=== PATIENT | female | born 1945 | race Caucasian/White ===

== ENCOUNTER 2020-01-06 10:41 | Outpatient (CLI) | payer MEDICARE, OTHER, SELFPAY ==
--- NOTE | ~2020-01-06 | CT_ITS ---
EXAMINATION: CT brain wo/w con EXAM DATE: 01/06/2020 11:15 INDICATION: Left-sided throbbing headache for 3 days. TECHNIQUE: Spiral CT of the head was performed without contrast. Axial, coronal and sagittal images were reviewed. Patient was then injected with 100 cc Omnipaque 350 intravenous contrast and reimaged. Postcontrast axial, coronal, sagittal reformatted images reviewed. The dose-length product (DLP) fo r this examination was 1059.33 mGy-cm. The exposure was tailored according to patient size, and iter ative reconstruction (ASIR) was used as additional dose reduction technique. There is no prior study for comparison. FINDINGS: There is no acute intraparenchymal hemorrhage. No evidence of intraparenchymal brain mass lesion. No evidence of acute infarction. Please note that initial head CT has limited sensitivity f or small or acute infarctions. There is mild periventricular and subcortical hypodensity, nonspecific but probably related to small vessel ischemic disease. There is mild prominence of the sulci and v entricles related to cerebral atrophy. There is intracranial carotid arteriosclerosis. There are n o extra-axial collections. There is no mass effect or midline shift. The orbits are unremarkable. Soft tissue is unremarkable. The visualized sinuses and mastoid air cells are well aerated. There are no areas of abnormal enhancement on the postcontrast images. No venous sinus thrombosis. IMPRESSION: 1. No acute intracranial findings. 2. Chronic age related findings. Reviewed, dictated and finalized at location A.
[2020-01-06 11:03] LABS: Estimated Glomerular Filt Rate > 60
== END 2020-01-06 10:42 | disposition home or self-care (01) ==
PROVIDERS: PCP Internal Medicine; Visit Provider Internal Medicine
DX: R51 Headache (principal)
CPT/HCPCS: 36415; 70470; Q9967

== ENCOUNTER 2020-05-04 07:59 | Outpatient (CLI) | payer MEDICARE, OTHER, SELFPAY ==
--- NOTE | ~2020-05-04 | MM_ITS ---
EXAMINATION: MM screening arsenio BI w ziyad HISTORY: Screening mammogram TECHNIQUE: Craniocaudal and mediolateral oblique 3-D tomosynthesis images were obtained and synthetic 2-D images were generated. CAD analysis was submitted and interpreted. COMPARISON: 03/27/2019, 02/26/2018, 02/13/2017 bilateral digital screening mammogram examinations BREAST PARENCHYMAL COMPOSITION: The breasts are almost entirely fatty. FINDINGS: There is a small benign appearing intramammary lymph node in the upper outer right breast p osteriorly, diminished in size since 02/13/2017. There is no evidence of suspicious mass, calcificatio n, or architectural distortion to suggest malignancy in either breast. There has been no suspicious i nterval change. IMPRESSION: 1. No mammographic evidence of malignancy. 2. Recommend routine screening mammography in one year. BI-RADS Category 2: Benign finding(s). Reviewed, dictated and finalized at location B. TOLOGICAL TECHNICIAN
== END 2020-05-04 08:00 | disposition home or self-care (01) ==
PROVIDERS: PCP Internal Medicine; Visit Provider Nurse Practitioner
DX: Z12.31 Encounter for screening mammogram for malignant neoplasm of breast (principal)
CPT/HCPCS: 77063; 77067

== ENCOUNTER 2020-10-13 07:36 | Outpatient (CLI) | payer MEDICARE, OTHER, SELFPAY ==
--- NOTE | 2020-10-13 07:41 | ECHO_ITS ---
Patient Info Name: Nicolasa Marrufo Age: 75 years : 1945 Gender: Female Ht: 65 in Wt: 170 lbs BSA: 1.90 m2 HR: 82 bpm BP: 121 / 82 mmHg Technical Quality: Good Exam Date: 10/13/2020 7:53 AM Exam Location: [facility] Patient Status: Outpatient Admit Date: 10/13/2020 Staff Ordering Physician: Evangelist Crockett MD Medical Safety Director: Dai Christianson RDCS Attending Provider: Evangelist Crockett MD Referring Physician: Bon LAM; Exam Type: CA echo doppler color flow Study Info Indications I51.9 - Heart disease, unspecified Complete two-dimensional, color flow and Doppler transthoracic echocardiogram is performed. Summary 1. Complete two-dimensional, color flow and Doppler transthoracic echocardiogram is performed. 2. Left ventricular chamber dimension is normal. 3. Left ventricular systolic function is normal, estimated at 60-65%. 4. The left ventricular diastolic function is grade I diastolic dysfunction. 5. E/e' 11 is mildly elevated. 6. There is mild aortic valve sclerosis. 7. There is trace tricuspid valve regurgitation. 8. No pulmonary hypertension, estimated pulmonary arterial systolic pressure is 27 mmHg. Left Ventricle E/e' 11 is mildly elevated. Left ventricular chamber dimension is normal. Left ventricular systolic function is normal, estimated at 60-65%. The left ventricular diastolic function is grade I diastolic dysfunction. Right Ventricle Right ventricular chamber dimension is normal. Right ventricular systolic function is normal. Left Atria Left atrial chamber dimension is normal. Right Atria Right atrial chamber dimension is normal. Aortic Valve The aortic valve is trileaflet. There is mild aortic valve sclerosis. There is no aortic valve stenosis. There is no aortic valve regurgitation. Pulmonic Valve There is no pulmonic regurgitation. Mitral Valve There is no mitral valve stenosis. There is no mitral valve regurgitation. Tricuspid Valve There is trace tricuspid valve regurgitation. No pulmonary hypertension, estimated pulmonary arterial systolic pressure is 27 mmHg. Pericardium/Pleural There is no pericardial effusion. Inferior Vena Cava Normal inferior vena cava with >50% collapse upon inspiration consistent with normal right atrial pressure, 5 mmHg. Aorta The aortic root size at the sinus of Valsalva is normal. Left Ventricular Outflow Tract Name Value Normal LVOT 2D LVOT Diameter 1.9 cm LVOT Doppler LVOT Peak Gradient 4 mmHg LVOT Mean Gradient 3 mmHg LVOT VTI 20 cm LVOT VTI/AV VTI Ratio 0.9 LVOT Stroke Volume 57 ml LVOT CO 4.4 l/min LVOT CI 2.3 l/min/m2 Pulmonic Valve Name Value Normal RVOT Doppler
== END 2020-10-13 07:37 | disposition home or self-care (01) ==
PROVIDERS: PCP Internal Medicine; Visit Provider Internal Medicine
DX: I51.9 Heart disease, unspecified (principal)
CPT/HCPCS: 93306

== ENCOUNTER 2021-06-04 09:22 | Outpatient (CLI) | payer MEDICARE, OTHER, SELFPAY ==
--- NOTE | ~2021-06-04 | NM_ITS ---
EXAMINATION: NM aurora stress w perfusion DATE: 06/04/2021 11:57 INDICATION: Abnormal electrocardiogram. TECHNIQUE: Rest images were obtained following intravenous administration of 9.5 mCi Tc99m tetrofosmi n (Myoview). The patient was infused intravenously with Lexiscan (regadenoson). Then, 30 mCi Tc99m te trofosmin (Myoview) was administered intravenously, and stress images were obtained. Data was reconst ructed into short axis and horizontal and vertical long axis SPECT images. Gated SPECT images were al so obtained. COMPARISON: None. FINDINGS: There is no definite reversible or fixed perfusion abnormality to suggest ischemia or infar ction. There is no segmental wall motion abnormality. Left ventricular ejection fraction measures 7 0%. IMPRESSION: 1. No definite ischemia or infarct. 2. Normal left ventricular ejection fraction measuring 70%. Reviewed, dictated and finalized at location A. DENT DOCTOR
--- NOTE | 2021-06-04 10:01 | EST_ITS ---
Patient Info Name: Nicolasa Marrufo Age: 75 years : 1945 Gender: Female Ht: 64 in Wt: 173 lbs BSA: 1.91 m2 HR: 73 bpm BP: 168 / 97 mmHg Heart Rhythm: Left Bundle Branch Block Exam Date: 06/04/2021 10:47 AM Exam Location: [facility] Stress Patient Status: Outpatient Admit Date: 06/04/2021 Staff Ordering Physician: Evangelist Crockett MD Attending Provider: Evangelist Crockett MD Exercise Technologist: Kaya Tena CT Exercise Physician: Ryan Vazquez DO Exam Type: CA stress aurora w NM Study Info Indications I44.7 - Left bundle-branch block, unspecified R94.31 - Abnormal electrocardiogram ECG EKG A regadenoson stress test was performed. Summary 1. 1. Inconclusive lexiscan stress test for ischemic ST changes by ECG criteria due to underlying LBBB. 2. 2. Stable hemodynamics throughout the test. 3. 3. Nuclear scan to follow and will be reported separately. Please correlate with it. 4. 4. Patient informed of the above results. Protocol: Lexiscan Stress ECG Details Stage: REST Duration (min): 3 min : 30 sec HR (bpm): 74 SBP (mmHg): 168 DBP (mmHg): 97 Stage: REST Duration (min): 10 min : 7 sec HR (bpm): 78 SBP (mmHg): 168 DBP (mmHg): 97 Stage: STAGE 1 Duration (min): 1 min : 0 sec HR (bpm): 113 SBP (mmHg): 181 DBP (mmHg): 74 Stage: RECOVERY Duration (min): 1 min : 0 sec HR (bpm): 121 SBP (mmHg): 181 DBP (mmHg): 74 Stage: RECOVERY Duration (min): 2 min : 0 sec HR (bpm): 119 SBP (mmHg): 181 DBP (mmHg): 74 Stage: RECOVERY Duration (min): 3 min : 0 sec HR (bpm): 110 SBP (mmHg): 191 DBP (mmHg): 86 Stage: RECOVERY Duration (min): 4 min : 0 sec HR (bpm): 100 SBP (mmHg): 191 DBP (mmHg): 86 Stage: RECOVERY Duration (min): 4 min : 57 sec HR (bpm): 104 SBP (mmHg): 188 DBP (mmHg): 90 Rest HR: 78 bpm Peak HR: 122 bpm Rest Sys BP: 168 mmHg Peak Sys BP: 191 mmHg Max Pred HR: 147 bpm % Max Pred HR: 83 % Target HR: 125 bpm Max RPP: 23,302 bpm*mmHg Termination Reason: Completed protocol Cardiac Symptoms: Shortness of breath Total Time: 1 min : 0 sec Rest Coppola BP: 97 mmHg Peak Coppola BP: 86 mmHg Total Dose: 0.4 mg Resting ECG Sinus rhythm, LBBB. Stress ECG No ST changes. Arrhythmias None. Report Signatures
== END 2021-06-04 09:23 | disposition home or self-care (01) ==
LOC: ANHCARD 09:25
PROVIDERS: PCP Internal Medicine; Visit Provider Internal Medicine
DX: R94.31 Abnormal electrocardiogram [ECG] [EKG] (principal); I44.7 Left bundle-branch block, unspecified
CPT/HCPCS: 78452; 93017; A9502; J2785

== ENCOUNTER 2021-08-26 10:15 | Outpatient (CLI) | payer MEDICARE, OTHER, SELFPAY ==
--- NOTE | ~2021-08-26 | MM_ITS ---
EXAMINATION: MM screening arsenio BI w ziyad HISTORY: Screening TECHNIQUE: Craniocaudal and mediolateral oblique 3-D tomosynthesis images were obtained and synthetic 2-D images were generated. CAD analysis was submitted and interpreted. COMPARISON: Comparison to multiple prior studies sequentially, with oldest reviewed study dated 02/03. BREAST PARENCHYMAL COMPOSITION: The breasts are almost entirely fatty. FINDINGS: There is no evidence of suspicious mass, calcification, or architectural distortion to sugg est malignancy in either breast. There has been no suspicious interval change. IMPRESSION: 1. No mammographic evidence of malignancy. 2. Recommend routine screening mammography in one year. BI-RADS Category 1: Negative Reviewed, dictated and finalized at location A. FOUNDER AND CEO
== END 2021-08-26 10:16 | disposition home or self-care (01) ==
PROVIDERS: PCP Internal Medicine; Visit Provider Nurse Practitioner
DX: Z12.31 Encounter for screening mammogram for malignant neoplasm of breast (principal)
CPT/HCPCS: 77063; 77067

== ENCOUNTER 2021-10-29 07:43 | Outpatient (CLI) | payer MEDICARE, OTHER, SELFPAY ==
--- NOTE | ~2021-10-29 | DEXA_ITS ---
Bone Density Report Name: KARIE CHRISTY Age: 76 Sex: Female Ethnicity: White Date of : 1945 Indication: postmenopausal; screening for osteoporosis; Referring Provider: BRISSA, LINA Study: Bone densitometry was performed. Exam Date: October 29, 2021 Accession number: [id number] Bone Density: Region BMD T-score Z-score Classification AP Spine(L1-L4) 1.060 0.1 2.5 Normal Femoral Neck (Left) 0.597 -2.3 -0.2 Osteopenia Total Hip (Left) 0.893 -0.4 1.3 Normal Femoral Neck (Right) 0.617 -2.1 0.0 Osteopenia Total Hip (Right) 0.837 -0.9 0.9 Normal Total Hip Mean 0.865 -0.7 1.1 Normal World Health Organization criteria for BMD impression classify patients as: Normal (T-score at or above -1.0), Osteopenia (T-score between -1.0 and -2.5), or Osteoporosis (T-score at or below -2.5). 10-year Fracture Risk(1): Major Osteoporotic Fracture 14% Hip Fracture 3.8% Reported Risk Factors: [place] (), Neck BMD=0.597, BMI=29.1 (1) FRAX(R) Version 3.08. Fracture probability calculated for an untreated patient. Fracture probability may be lower if the patient has received treatment. Previous Exams: Region Exam Age BMD T-score BMD Change BMD Change Date g/cm2 vs Baseline vs Previous AP Spine (L1-L4) 10/29/2021 76 1.060 0.1 0.051 (5.1%)# 0.024 (2.4%)* 02/26/2018 72 1.035 -0.1 0.027 (2.7%)# 0.014 (1.4%) 02/11/2016 70 1.021 -0.2 0.012 (1.2%)# 0.012 (1.2%)# 01/09/2014 68 1.008 -0.4 Total Hip(Left) 10/29/2021 76 0.893 -0.4 0.091 (11.3%)# -0.007 (-0.8%) 02/26/2018 72 0.901 -0.3 0.098 (12.2%)# 0.038 (4.4%)* 02/11/2016 70 0.863 -0.6 0.060 (7.5%)# 0.060 (7.5%)# 01/09/2014 68 0.803 -1.1 Total Hip(Right) 10/29/2021 76 0.837 -0.9 -0.034 (-3.9%) -0.062 (-6.9%) 02/26/2018 72 0.899 -0.4 0.028 (3.2%)# 0.059 (7.1%)* 02/11/2016 70 0.840 -0.8 -0.032 (-3.7%) -0.032 (-3.7%) 01/09/2014 68 0.872 -0.6 *Denotes significance at 95% confidence level, LSC for AP Spine = 0.022 g/cm2, LSC for Total Hip = 0.027 g/cm2 # Denotes dissimilar scan types or analysis methods Clinical Information Provided by Patient: Has used the following medications: Vitamin D Patient maximum height was 65 Menopause Age: 57 Does not regularly consume dairy products Onset of menses at age 15 Number of children 1 Impression: The patient has low bone mass, based on the Left Femora
== END 2021-10-29 07:44 | disposition home or self-care (01) ==
PROVIDERS: PCP Internal Medicine; Visit Provider Nurse Practitioner
DX: Z78.0 Asymptomatic menopausal state (principal); M85.851 Other specified disorders of bone density and structure, right thigh; M85.852 Other specified disorders of bone density and structure, left thigh
CPT/HCPCS: 77080

== ENCOUNTER 2022-02-10 00:46 | Day surgery (SDC) | payer MEDICARE, OTHER, SELFPAY ==
[2022-01-27 14:13] VITALS: BMI 28.9
--- NOTE | 2022-02-09 16:05 | PM.HPGS ---
History of Present Illness History of Present Illness Consent: Risks, benefits, and alternatives have been discussed and questions answered. Patient agrees to proceed with procedure. Chief complaint: family hx colon ca Narrative: Nicolasa Marrufo is a 76 year old female is referred for colon cancer screening. Her brother had colon cancer. She also had 2 polyps removed about 5 years ago Review of Systems Review of Systems: All systems reviewed & are unremarkable except as noted in HPI and below PMFSH Past Medical History Medical History Abnormal EKG Abnormal finding of blood chemistry Acute right-sided low back pain without sciatica Aortic valve sclerosis Benign essential hypertension BMI 28.0-28.9,adult BMI 29.0-29.9,adult Bronchiectasis with acute exacerbation Bronchitis Chronic low back pain DM type 2 (diabetes mellitus, type 2) Encounter for Medicare annual wellness exam Encounter for routine adult health examination with abnormal findings Encounter for routine adult health examination without abnormal findings Follow up Frozen shoulder Gastroenteritis Geographic tongue Grade I diastolic dysfunction Grade II diastolic dysfunction Headache Hematuria Hyperlipidemia Hypothyroidism (acquired) Left bundle branch block Left shoulder pain Mid back pain Nausea and vomiting Nonintractable headache On watermaster drug therapy Reactive airway disease Right calf pain Right hip pain Vitamin D deficiency Wheezing Surgical History Surgical History S/P cholecystectomy Family History Family History Father Diabetes mellitus Hypertension Family history of diabetes mellitus in first degree relative Mother Hypertension Family history of cardiovascular disease Family history of heart disease in male family member before age 55 Sibling Carcinoma of colon Family history of malignant neoplasm of gastrointestinal tract Social History Social History Smoking status: Never smoker Second hand tobacco smoke exposure: No Smoking end date: 05/19/80 Alcohol intake: never Substance use type: does not use Living arrangements: with family Spiritual care concerns: No Meds Home Medications and Allergies Home Medications Medication Instructions Recorded Confirmed Type cetirizine 10 mg tablet (Zyrtec) 5 mg PO DAILY PRN Allergy Symptoms 04/30/19 02/10/22 History oxybutynin chloride 10 mg 10 mg PO DAILY 04/30/19 02/10/22 History tablet,extended release 24 hr Blood Glucose Monitoring #1 ea 05/28/19 02/10/22 Rx (blood-glucose meter) blood sugar diagnostic (Accu-Chek #10 ea 05/28/19 02/10/22 History Patria Plus test strips) lancets (Accu-Chek Softclix #100 ea 06/07/19 02/10/22 Rx Lancets) lancets 33 gauge (OneTouch Delica #100 ea 06/10/19 02/10/22 Rx Lancets) cholecalciferol (vitamin D3) 25 2,000 unit PO DAILY 08/28/19 02/10/22 History mcg (1,000 unit) capsule omega-3 fatty acids 1,000 mg 1,000 mg PO BID 08/28/19 02/10/22 History capsule (Fish Oil Concentrate) vitamin B complex 1 tablet PO DAILY 08/28/19 02/10/22 History quinapril 20 mg tablet 20 mg PO DAILY #90 tabs 08/16/21 02/10/22 Rx promethazine 25 mg tablet 25 mg PO .hs PRN sleep #30 tabs 12/01/21 02/10/22 Rx albuterol sulfate 90 mcg/actuation 1 puff inhalation Q4H PRN 12/02/21 02/10/22 Rx aerosol inhaler (Ventolin HFA) shortness of breath or wheezing #6.7 grams ibuprofen 800 mg tablet 800 mg PO BID 01/27/22 02/10/22 History levothyroxine 100 mcg tablet 100 mcg PO DAILY 01/27/22 02/10/22 History metformin 1,000 mg tablet 1,000 mg PO BID 01/27/22 02/10/22 History pravastatin 80 mg tablet 80 mg PO DAILY 01/27/22 02/10/22 History Allergies Allergy/AdvReac Type Severity Reaction Status Date / Time codeine AdvReac Int
[2022-02-10 07:05] VITALS: BP 151/85; PULSE 105; RESP 18; TEMP 36.4; O2SAT 97; BMI 28.5
[2022-02-10] MEDS: LACTATED RINGERS 1,000 ML 150 ML IV CONT (07:42)
[2022-02-10 07:43] LABS: Glucose Point of Care 139 mg/dl (65-105)
--- NOTE | 2022-02-10 08:16 | WPDANESEPPF ---
Anes - Initial Pre Proc Eval Procedure: Operation Date: 02/10/22 08:30 Proposed Procedures p Screening Colonoscopy - Kumar Sorensen MD Date/Time: 02/10/22 08:16 Surgeon: Kumar Sorensen MD Pre Op Diagnosis: family hx colon ca Patient Data Age: 76 Gender: F Height: 1.63 m Weight: 75.3 kg Last Vital Signs Temp 97.6 F 02/10/22 07:05 Pulse 105 H 02/10/22 07:05 Resp 18 02/10/22 07:05 BP 151/85 H 02/10/22 07:05 Pulse Ox 97 02/10/22 07:05 O2 Del Method Room Air 02/10/22 07:05 Allergies Allergy/AdvReac Type Severity Reaction Status Date / Time codeine AdvReac Intermediate Nausea and Verified 02/10/22 07:26 Vomiting Home Medications Medication Instructions Recorded Confirmed Type cetirizine 10 mg tablet (Zyrtec) 5 mg PO DAILY PRN Allergy Symptoms 04/30/19 02/10/22 History oxybutynin chloride 10 mg 10 mg PO DAILY 04/30/19 02/10/22 History tablet,extended release 24 hr Blood Glucose Monitoring #1 ea 05/28/19 02/10/22 Rx (blood-glucose meter) blood sugar diagnostic (Accu-Chek #10 ea 05/28/19 02/10/22 History Patria Plus test strips) lancets (Accu-Chek Softclix #100 ea 06/07/19 02/10/22 Rx Lancets) lancets 33 gauge (OneTouch Delica #100 ea 06/10/19 02/10/22 Rx Lancets) cholecalciferol (vitamin D3) 25 2,000 unit PO DAILY 08/28/19 02/10/22 History mcg (1,000 unit) capsule omega-3 fatty acids 1,000 mg 1,000 mg PO BID 08/28/19 02/10/22 History capsule (Fish Oil Concentrate) vitamin B complex 1 tablet PO DAILY 08/28/19 02/10/22 History quinapril 20 mg tablet 20 mg PO DAILY #90 tabs 08/16/21 02/10/22 Rx promethazine 25 mg tablet 25 mg PO .hs PRN sleep #30 tabs 12/01/21 02/10/22 Rx albuterol sulfate 90 mcg/actuation 1 puff inhalation Q4H PRN 12/02/21 02/10/22 Rx aerosol inhaler (Ventolin HFA) shortness of breath or wheezing #6.7 grams ibuprofen 800 mg tablet 800 mg PO BID 01/27/22 02/10/22 History levothyroxine 100 mcg tablet 100 mcg PO DAILY 01/27/22 02/10/22 History metformin 1,000 mg tablet 1,000 mg PO BID 01/27/22 02/10/22 History pravastatin 80 mg tablet 80 mg PO DAILY 01/27/22 02/10/22 History Laboratory Tests 02/10/22 07:41 POC Capillary Glucose 139 mg/dl H mg/dl (65-105) Patient hx anesthesia problems: none Family hx anesthesia problems: none Results Review: All pre-operative results and documents have been reviewed as part of the pre-operative evaluation. [facility] Past Medical History Medical History Abnormal EKG Abnormal finding of blood chemistry Acute right-sided low back pain without sciatica Aortic valve sclerosis Benign essential hypertension BMI 28.0-28.9,adult BMI 29.0-29.9,adult Bronchiectasis with acute exacerbation Bronchitis Chronic low back pain DM type 2 (diabetes mellitus, type 2) Encounter for Medicare annual wellness exam Encounter for routine adult health examination with abnormal findings Encounter for routine adult health examination without abnormal findings Follow up Frozen shoulder Gastroenteritis Geographic tongue Grade I diastolic dysfunction Grade II diastolic dysfunction Headache Hematuria Hyperlipidemia Hypothyroidism (acquired) Left bundle branch block Left shoulder pain Mid back pain Nausea and vomiting Nonintractable headache 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
[2022-02-10 08:47] VITALS: BP 109/65; PULSE 92; RESP 16; O2SAT 94
[2022-02-10 08:57] VITALS: BP 114/62; PULSE 91; RESP 19; O2SAT 95
== END 2022-02-10 09:17 | disposition home or self-care (01) ==
PROVIDERS: PCP Internal Medicine; Visit Provider Internal Medicine Gastroenterology
PROC: 0DJD8ZZ Inspection of Lower Intestinal Tract, Via Natural or Artificial Opening Endoscopic (ICD-10-PCS; CPT 45378; principal; 2022-02-10 08:30)
DX: Z12.11 Encounter for screening for malignant neoplasm of colon (principal); Z80.0 Family history of malignant neoplasm of digestive organs; K57.30 Diverticulosis of large intestine without perforation or abscess without bleeding; E03.9 Hypothyroidism, unspecified; Z79.84 Long term (current) use of oral hypoglycemic drugs; Z79.51 Long term (current) use of inhaled steroids; I10 Essential (primary) hypertension; E11.9 Type 2 diabetes mellitus without complications; I35.8 Other nonrheumatic aortic valve disorders; E78.5 Hyperlipidemia, unspecified; E55.9 Vitamin D deficiency, unspecified; Z90.49 Acquired absence of other specified parts of digestive tract; I44.7 Left bundle-branch block, unspecified
CPT/HCPCS: G0105; 82948; J2704; J7120

== ENCOUNTER 2022-08-30 14:23 | Outpatient (CLI) | payer MEDICARE, OTHER, SELFPAY ==
--- NOTE | 2022-08-30 14:33 | ECHO_ITS ---
Patient Info Name: Nicolasa Marrufo Age: 77 years : 1945 Gender: Female Ht: 64 in Wt: 166 lbs BSA: 1.87 m2 HR: 87 bpm BP: 165 / 94 mmHg Heart Rhythm: Sinus Rhythm Technical Quality: Fair Exam Date: 08/30/2022 1:40 PM Exam Location: [facility] Pulmonary Patient Status: Outpatient Admit Date: 08/30/2022 Staff Ordering Physician: Evangelist Crockett MD Automotive Vehicle Inspector: Marian Philippe RDCS Attending Provider: Evangelist Crockett MD Referring Physician: Bon LAM; Exam Type: CA echo doppler color flow Study Info Indications I44.7 - Left bundle-branch block, unspecified Complete two-dimensional, color flow and Doppler transthoracic echocardiogram is performed. Summary 1. Complete two-dimensional, color flow and Doppler transthoracic echocardiogram is performed. 2. Left ventricular chamber dimension is normal. 3. Left ventricular systolic function is normal, estimated at 55-60%. 4. The left ventricular diastolic function is grade I diastolic dysfunction. 5. E/e' 13 is mildly elevated. 6. Global longitudinal strain is slightly abnormal at -16.9%. 7. There is mild aortic valve sclerosis. 8. There is trace mitral valve regurgitation. 9. There is trace tricuspid valve regurgitation. 10. No pulmonary hypertension, estimated pulmonary arterial systolic pressure is 18 mmHg. 11. There is trace pulmonic regurgitation. Left Ventricle E/e' 13 is mildly elevated. Global longitudinal strain is slightly abnormal at -16.9%. Left ventricular chamber dimension is normal. Left ventricular systolic function is normal, estimated at 55-60%. The left ventricular diastolic function is grade I diastolic dysfunction. Right Ventricle Right ventricular systolic function is normal and with normal TAPSE 2.1 cm. Right ventricular chamber dimension is normal. Left Atria Left atrial chamber dimension is normal. Right Atria Right atrial chamber dimension is normal. Aortic Valve The aortic valve is trileaflet. There is mild aortic valve sclerosis. There is no aortic valve stenosis. There is no aortic valve regurgitation. Pulmonic Valve There is trace pulmonic regurgitation. Mitral Valve There is no mitral valve stenosis. There is trace mitral valve regurgitation. Tricuspid Valve There is trace tricuspid valve regurgitation. No pulmonary hypertension, estimated pulmonary arterial systolic pressure is 18 mmHg. Pericardium/Pleural There is no pericardial effusion. Inferior Vena Cava Normal inferior vena cava with >50% collapse upon inspiration consistent with normal right atrial pressure, 5 mmHg. Aorta The aortic root size at the sinus of Valsalva is normal. Left Ventricular Outflow Tract Name Value Normal LVOT 2D LVOT Diameter 2.0 cm LVOT Doppler LVOT Peak Gradient 5 mmHg LVOT Mean Gradient 2 mmHg LVOT VTI 17 cm LVOT VTI/AV VTI Ratio 0.7 LVOT Stroke Volume 53 ml LVOT CO 3.9 l/min LVOT CI
== END 2022-08-30 14:24 | disposition home or self-care (01) ==
LOC: ANHCARD 14:24
PROVIDERS: PCP Internal Medicine; Visit Provider Internal Medicine
DX: I44.7 Left bundle-branch block, unspecified (principal); I35.8 Other nonrheumatic aortic valve disorders; I51.9 Heart disease, unspecified
CPT/HCPCS: 93306

== ENCOUNTER 2022-10-04 09:58 | Outpatient (CLI) | payer MEDICARE, OTHER, SELFPAY ==
--- NOTE | ~2022-10-04 | XR_ITS ---
Clinical Indication: Cough PA and lateral views of the chest: Comparison: 08/13/2018 Findings: The lungs are clear, without evidence of focal consolidation or pleural effusion. Cardiome diastinal silhouette is within normal limits. Bones and soft tissues are unremarkable. Impression: Normal chest. Reviewed, dictated and finalized at [facility]. Impression: Normal chest.
== END 2022-10-04 09:59 | disposition home or self-care (01) ==
PROVIDERS: PCP Internal Medicine; Visit Provider Internal Medicine
DX: R05.9 Cough, unspecified (principal); R06.2 Wheezing; R07.89 Other chest pain
CPT/HCPCS: 71046

== ENCOUNTER 2022-10-05 16:06 | Outpatient (CLI) | payer MEDICARE, OTHER, SELFPAY ==
--- NOTE | ~2022-10-05 | MM_ITS ---
EXAMINATION: MM screening arsenio BI w ziyad HISTORY: Screening mammogram TECHNIQUE: Craniocaudal and mediolateral oblique 3-D tomosynthesis images were obtained and synthetic 2-D images were generated. CAD analysis was submitted and interpreted. COMPARISON: 08/26/2021, 05/04/2020, 04/06/2019 bilateral screening mammogram examinations BREAST PARENCHYMAL COMPOSITION: The breasts are almost entirely fatty. FINDINGS: There is no evidence of suspicious mass, calcification, or architectural distortion to sugg est malignancy in either breast. There has been no suspicious interval change. IMPRESSION: 1. No mammographic evidence of malignancy. 2. Recommend routine screening mammography in one year. BI-RADS Category 1: Negative Reviewed, dictated and finalized at location B.
== END 2022-10-05 16:07 | disposition home or self-care (01) ==
PROVIDERS: PCP Internal Medicine; Visit Provider Obstetrics & Gynecology Gynecology
DX: Z12.31 Encounter for screening mammogram for malignant neoplasm of breast (principal)
CPT/HCPCS: 77063; 77067

== ENCOUNTER 2022-10-26 11:11 | Outpatient (CLI) | payer MEDICARE, OTHER, SELFPAY ==
--- NOTE | 2022-11-02 15:12 | WPDHOLTEREM ---
Holter/Event Monitor Holter/Event Monitor Date of procedure: 10/26/22 Holter/Event Procedure: 48 Hr Holter Monitor Indications: High heart rate Conclusion: 1. 48 hour holter monitor on 10/26/22. 2. Predominant rhythm is sinus rhythm. HR range 54-132 bpm; average HR 95 bpm. HR at 132 bpm was at 14:08. 3. There are 520 premature supraventricular complexes and 1 supraventricular couplet. There are 2 episodes of atrial tachycardia, fastest at 160 bpm and longest lasting 4 beats. 4. No premature ventricular complexes. No ventricular tachycardia. 5. Underlying bundle branch block. No sinoatrial or atrioventricular blocks. No significant pauses greater than 2 seconds. 6. Patient reports symptoms of shortness of breath and pain in hand which demonstrate sinus rhythm, HR range 100-129 bpm.
== END 2022-10-26 11:12 | disposition home or self-care (01) ==
LOC: ANHCARD 11:12
PROVIDERS: PCP Internal Medicine; Visit Provider Internal Medicine
DX: R00.9 Unspecified abnormalities of heart beat (principal); I10 Essential (primary) hypertension
CPT/HCPCS: 93225; 93226

== ENCOUNTER 2022-12-27 09:34 | Outpatient (CLI) | payer MEDICARE, OTHER, SELFPAY ==
--- NOTE | 2022-12-30 12:16 | WPDHOLTEREM ---
Holter/Event Monitor Holter/Event Monitor Date of procedure: 12/27/22 Holter/Event Procedure: 48 Hr Holter Monitor Indications: SVT Conclusion: 1. 48 hour holter monitor on 12/27/22. 2. Underlying rhythm is sinus rhythm. HR range 53-124 bpm; average HR 80 bpm. 3. There are 86 premature supraventricular complexes and 5 supraventricular couplets. No supraventricular tachycardia. 4. There are 52 prmature ventricular complexes. No ventricular tachycardia. 5. Baseline LBBB. No sinoatrial or atrioventricular blocks. No significant pauses greater than 2 seconds. 6. Patient reports symptoms of lightheadedness, shortness of breath and pain between shoulder blades which demonstrate sinus rhythm, HR range 68-98 bpm.
== END 2022-12-27 09:35 | disposition home or self-care (01) ==
LOC: ANHCARD 09:34
PROVIDERS: PCP Internal Medicine; Visit Provider Internal Medicine
DX: I47.1 Supraventricular tachycardia (principal)
CPT/HCPCS: 93225; 93226

== ENCOUNTER 2023-08-07 10:17 | Outpatient (CLI) | payer MEDICARE, OTHER, SELFPAY ==
[2023-08-07 11:10] LABS: Influenza A QL RT-PCR Negative (Negative); Influenza B QL RT-PCR Negative (Negative)
== END 2023-08-07 10:18 | disposition home or self-care (01) ==
LOC: ANHLAB 10:18
PROVIDERS: PCP Internal Medicine; Visit Provider Internal Medicine
DX: R05.9 Cough, unspecified (principal); R50.9 Fever, unspecified
CPT/HCPCS: 87502

== ENCOUNTER 2023-08-21 15:42 | Outpatient (CLI) | payer MEDICARE, OTHER, SELFPAY ==
--- NOTE | ~2023-08-21 | XR_ITS ---
EXAMINATION: XR chest 2V Exam Date/Time: 08/21/2023 15:50 WEIGH TANK OPERATOR HISTORY: R05.9 - Cough, unspecified Comparison: 10/04/2022. RESULT: Lines, tubes, and devices: None. Lungs and pleura: Clear. Cardiomediastinal silhouette: Stable. Other: No acute osseous or upper abdominal finding. IMPRESSION: No acute cardiopulmonary process. Reviewed, dictated and finalized at location K. H TANK OPERATOR
== END 2023-08-21 15:43 | disposition home or self-care (01) ==
LOC: ANHIMG 15:45
PROVIDERS: PCP Internal Medicine; Visit Provider Internal Medicine
DX: R05.9 Cough, unspecified (principal)
CPT/HCPCS: 71046

== ENCOUNTER 2023-09-05 08:35 | Outpatient (CLI) | payer MEDICARE, OTHER, SELFPAY ==
--- NOTE | 2023-09-05 | EST_ITS ---
Patient Info Name: Nicolasa Marrufo Age: 78 years : 1945 Gender: Female Ht: 65 in Wt: 165 lbs BSA: 1.87 m2 HR: 86 bpm BP: 115 / 71 mmHg Heart Rhythm: Left Bundle Branch Block Exam Date: 09/05/2023 9:26 AM Exam Location: Echo Lab Patient Status: Outpatient Admit Date: 09/05/2023 Staff Ordering Physician: Evangelist Crockett MD Attending Provider: Evangelist Crockett MD Exercise Technologist: Kaya Tena CT Exercise Physician: Ryan Vazquez DO Exam Type: CA stress aurora w NM Study Info Indications I44.7 - Left bundle-branch block, unspecified A regadenoson stress test was performed. Summary 1. 1. Inconclusive lexiscan stress test for ischemic ST changes by ECG criteria due to baseline LBBB. 2. 2. Stable hemodynamics throughout the test. 3. 3. Nuclear scan to follow and will be reported separately. Please correlate with it. 4. 4. Patient informed of the above results. Protocol: Lexiscan Stress ECG Details Stage: REST Duration (min): 1 min : 39 sec HR (bpm): 86 SBP (mmHg): 115 DBP (mmHg): 71 Stage: REST Duration (min): 8 min : 9 sec HR (bpm): 90 SBP (mmHg): 115 DBP (mmHg): 71 Stage: STAGE 1 Duration (min): 1 min : 0 sec HR (bpm): 119 SBP (mmHg): 115 DBP (mmHg): 75 Stage: RECOVERY Duration (min): 1 min : 0 sec HR (bpm): 123 SBP (mmHg): 115 DBP (mmHg): 75 Stage: RECOVERY Duration (min): 2 min : 0 sec HR (bpm): 121 SBP (mmHg): 115 DBP (mmHg): 75 Stage: RECOVERY Duration (min): 3 min : 0 sec HR (bpm): 116 SBP (mmHg): 147 DBP (mmHg): 69 Stage: RECOVERY Duration (min): 4 min : 0 sec HR (bpm): 112 SBP (mmHg): 147 DBP (mmHg): 69 Stage: RECOVERY Duration (min): 4 min : 41 sec HR (bpm): 110 SBP (mmHg): 133 DBP (mmHg): 60 Rest HR: 90 bpm Peak HR: 124 bpm Rest Sys BP: 115 mmHg Peak Sys BP: 147 mmHg Max Pred HR: 144 bpm % Max Pred HR: 86 % Target HR: 122 bpm Max RPP: 18,228 bpm*mmHg Termination Reason: Completed protocol Cardiac Symptoms: Shortness of breath Total Time: 1 min : 0 sec Rest Coppola BP: 71 mmHg Peak Coppola BP: 69 mmHg Total Dose: 0.4 mg Resting ECG Sinus rhythm, LBBB. Stress ECG No ST changes. Arrhythmias None. Report Signatures
--- NOTE | ~2023-09-05 | NM_ITS ---
EXAMINATION: NM aurora stress w perfusion DATE: 09/05/2023 10:32 INDICATION: Left bundle branch block. TECHNIQUE: Rest images were obtained following intravenous administration of 9.98 mCi Tc99m tetrofosm in (Myoview). The patient was infused intravenously with Lexiscan (Regadenoson). Then, 33.3 mCi Tc99m tetrofosmin (Myoview) was administered intravenously, and stress images were obtained. Data was toñito nstructed into short axis and horizontal and vertical long axis SPECT images. Gated SPECT images were also obtained. COMPARISON: 06/04/2021 FINDINGS: There is no definite reversible or fixed perfusion abnormality to suggest ischemia or infar ction. There is normal left ventricular chamber size, wall motion and ejection fraction. Left ventr icular ejection fraction measures >70%. IMPRESSION: 1. Normal myocardial perfusion at rest and during stress. 2. Left ventricular ejection fraction measuring >70%. Reviewed, dictated and finalized at location A.
== END 2023-09-05 08:36 | disposition home or self-care (01) ==
LOC: ANHCARD 08:38
PROVIDERS: PCP Internal Medicine; Visit Provider Internal Medicine
DX: I51.9 Heart disease, unspecified (principal); I35.8 Other nonrheumatic aortic valve disorders; I44.7 Left bundle-branch block, unspecified; I47.10 Supraventricular tachycardia, unspecified
CPT/HCPCS: 78452; 93017; A9502; J2785

== ENCOUNTER 2023-12-06 09:48 | Outpatient (CLI) | payer MEDICARE, OTHER, SELFPAY ==
--- NOTE | ~2023-12-06 | MM_ITS ---
EXAMINATION: MM screening arsenio BI w ziyad HISTORY: Screening TECHNIQUE: Craniocaudal and mediolateral oblique 3-D tomosynthesis images were obtained and synthetic 2-D images were generated. CAD analysis was submitted and interpreted. COMPARISON: Comparison to multiple prior studies sequentially, with oldest reviewed study dated 02/13. BREAST PARENCHYMAL COMPOSITION: The breasts are almost entirely fatty. FINDINGS: There is no evidence of suspicious mass, calcification, or architectural distortion to sugg est malignancy in either breast. There has been no suspicious interval change. IMPRESSION: 1. No mammographic evidence of malignancy. 2. Recommend routine screening mammography in one year. BI-RADS Category 1: Negative Reviewed, dictated and finalized at location B.
== END 2023-12-06 09:49 | disposition home or self-care (01) ==
LOC: ANHIMG 09:51
PROVIDERS: PCP Internal Medicine; Visit Provider Obstetrics & Gynecology Gynecology
DX: Z12.31 Encounter for screening mammogram for malignant neoplasm of breast (principal)
CPT/HCPCS: 77063; 77067

== ENCOUNTER 2024-04-27 09:49 | Emergency (ER) | payer MEDICARE, OTHER, SELFPAY ==
--- NOTE | ~2024-04-27 | XR_ITS ---
EXAMINATION: XR chest 2V DATE: 04/27/2024 10:32 INDICATION: Cough. Abnormal lung sounds. TECHNIQUE: Frontal and lateral views of the chest were obtained. COMPARISON: Chest 2 views 08/21/2023 FINDINGS: There is no pneumonia, pleural effusion, or pneumothorax. The heart size is normal. IMPRESSION: 1. No acute cardiopulmonary disease. Reviewed, dictated and finalized at location A. TICE SPECIALIST
[2024-04-27 09:55] VITALS: BP 134/80; PULSE 95; RESP 16; TEMP 36.6; O2SAT 88
--- NOTE | 2024-04-27 10:16 | ED_ITS ---
HPI - Female Genitourinary General Chief complaint: Urogenital-Female Stated complaint: Yeast Infection Symptoms Time Seen by Provider: 04/27/24 10:09 Source: patient, RN notes reviewed and old records reviewed Mode of arrival: ambulatory Limitations: no limitations History of Present Illness HPI Narrative: 78 year old female who presents to express care with complaints of vaginal irritation and burning has tried Monistat with minimal improvement and also burning with urination. Patient reports that she recently was treated for 10 days with Ceftin for respiratory infection and also with Benzonatate for her co ugh. Patient reports that she continues to have cough is taking the Benzonatate for her cough. SAO2 highest noted while in clinic 89%. Patient reports that it normally runs around 92% has had inhaler in past but states is out. Patient denies any feelings of acute dyspnea no tachypnea or retractions noted. Patient reports that she has appointment with Dr Akins on the of this month. MD elicited complaint: dysuria and other (recently completed Ceftin for respiratory infection) Onset (ago): day(s) (3) Location of symptoms: urethra and vaginal Severity: moderate Severity scale (1-10): 3 Vaginal discharge: none Vaginal bleeding: none Urinary symptoms: Dysuria and Urgency Treatment prior to arrival: other (Monistat ointment) Related Data Home Medications Medication Instructions Recorded Confirmed cetirizine 10 mg tablet (Zyrtec) 5 mg PO DAILY PRN Allergy Symptoms 04/30/19 04/27/24 cholecalciferol (vitamin D3) 25 2,000 unit PO DAILY 08/28/19 04/27/24 mcg (1,000 unit) capsule omega-3 fatty acids 1,000 mg 1,000 mg PO BID 08/28/19 04/27/24 capsule (Fish Oil Concentrate) Allergies Allergy/AdvReac Type Severity Reaction Status Date / Time codeine AdvReac Intermediate Nausea and Verified 12/12/23 10:19 Vomiting Review of Systems Review of Systems: CONSTITUTIONAL: Denies fever, chills, or sweats. CARDIOVASCULAR: Denies chest pain, palpitations, or edema. RESPIRATORY: Reports cough denies acute dyspnea. GASTROINTESTINAL: Denies abdominal pain, nausea, vomiting, or diarrhea. GENITOURINARY: Reports dysuria,no frequency, some urgency. Denies flank pain or hematuria.vaginal irritation with no vaginal discharge SKIN: Denies rash or itching. MUSCULOSKELETAL:States some lower back pain or myalgia. Denies CVA tenderness NEUROLOGIC: Denies headache All systems reviewed & are unremarkable except as noted in HPI and below PMFSH Past Medical History Medical History Abnormal EKG Abnormal finding of blood chemistry Acute right-sided low back pain without sciatica Aortic valve sclerosis Atrial tachycardia Benign essential hypertension BMI 27.0-27.9,adult BMI 28.0-28.9,adult BMI 29.0-29.9,adult Bronchiectasis with acute exacerbation Bronchitis Chronic low back pain DM type 2 (diabetes mellitus, type 2) Encounter for Medicare annual wellness exam Encounter for routine adult health examination with abnormal findings Encounter for routine adult health examination without abnormal findings Follow up Frozen shoulder Gastroenteritis Geographic tongue Grade I diastolic dysfunction Grade II diastolic dysfunction Headache Hematuria Hyperlipidemia Hypothyroidism (acquired) Left bundle branch block Left shoulder pain Mid back pain Nausea and vomiting Nonintractable headache On shelter drug therapy Personal history of COVID-19 Reactive airway disease Right calf pain Right hip pain Vitamin D deficiency Wheezing Surgical History Surgical History S/P cholecystectomy Family History Family History Father Diabetes mellitus Hypertension Family history of diabetes mellitus in first degree relative Mother Hypertension Family history of cardiovascular disease Family history of heart disease in male family member before age 55 Sibling Carcinoma of colon Family history of malignant neoplasm of gastrointestinal tract Social History Social History Smoking status: Never smoker Second hand tobacco smoke exposure: No Smoking end date: 05/19/80 Alcohol intake: never Substance use type: does not use Lack of Transportation: No Lack of Food: Sometimes True Current Housing: I Have Housing Concerned About Future Housing: No Difficulty Paying Gas/Electric Bills: No Difficulty Paying for Meds: No Currently Unemployed: No Education: High School Diploma/GED Difficulty w/ Childcare or Family Care: No Living arrangements: with family Gender identity (if verbalized by the patient): Female Spiritual care concerns: No Comments At time of signature, agree with nursing past medical, surgical, social and family history. There is no relevant family history pertinent to the presenting complaint Exam Narrative: GENERAL: Well-appearing, well-nourished, and in no acute distress. HEAD: Normocephalic, atraumatic. NECK: Supple.no lymphadenopathy CHEST: scattered rhonchi on auscultation. No acute respiratory distress cough noted SAO2 highest noted at 89% on room air. HEART: Regular rate and rhythm. No murmur heard. Normal peripheral pulses. ABDOMEN: Soft, nontender, nondistended, normal active bowel sounds. No CVA tenderness positive for vaginal irritation and dysuria with no vaginal discharge. EXTREMITIES: Normal range of motion. No edema. SKIN: Warm, dry, no rash. NEURO: No focal deficits. Alert and oriented x3. Course Course Emergency Course: Patient is aware of diagnosis, understands and agrees to treatment plan.? A nticipatory guidance given.? Patient agrees to follow-up as directed and is aware of reasons to seek care at the emergency department. Portions of this record may have been created with voice recognition software Level of Care: Express Care Visit Vital Signs Vital signs: Vital Signs Temperature 36.6 C 04/27/24 09:55 Pulse Rate 95 04/27/24 09:55 Respiratory Rate 16 04/27/24 09:55 Blood Pressure 134/80 04/27/24 09:55 Pulse Oximetry 88 L 04/27/24 09:55 Temperature 36.6 C 04/27/24 09:55 Pulse Rate 95 04/27/24 09:55 Respiratory Rate 16 04/27/24 09:55 Blood Pressure 134/80 04/27/24 09:55 Pulse Oximetry 88 L 04/27/24 09:55 MDM - Female Genitourinary [facility] Narrative Medical decision making narrative: Exam findings and UA show no acute concerns or changes; patient is non-toxic appearing and is in no distress.? Patient is appropriate for outpatient treatment and follow-up. Differential Diagnosis Differential diagnosis: Likely urinary tract infection, cystitis and other (yeast vaginal infection, cough, URI with cough and congestion.) Medical Records Attestation: I reviewed the patient's medical records. Lab Data Attestation: I reviewed the patient's lab results. Lab results narrative: urine dip: glucose negative, bilirubin negative, ketone negative, specific gravity 1.025, blood negative pH 6 point protein negative, urobilinogen 0.2 nitrate negative, leukocyte 1+ Labs: Lab Results 04/27/24 Range/Units 10:38 POC Urine Color Yellow POC Urine Clarity Clear POC Urine pH 6.0 POC Ur Specif Hewitt 1.025 POC Urine Protein Negative (Negative) POC Ur Glucose (UA) Negative (Negative) POC Urine Ketones Negative (Negative) POC Urine Blood Negative (Negative) POC Urine Nitrite Negative (Negative) POC Urine Bilirubin Negative (Negative) POC Urine Urobilinogen 0.2 POC U Leukocyte Esteras 1+ (Negative) Imaging Data Attestation: I personally reviewed and interpreted this imaging study as follows: My impression: no acute cardiopulmonary disease Radiologist's impression: [address] [place] [address] XRay Report Signed Patient: Nicolasa Marrufo : 1945 MR#: [id number] Age: 78 Acct:[id number] Loc: [facility] ADM Date: 04/27/24Attending Dr: Ordering Physician: Lucia Rausch APRN Date of Service: 04/27/24 Procedure(s): XR chest 2V Accession Number(s): [id number] cc: Evangelist Crockett MD; Lucia Rausch APRN~ EXAMINATION: XR chest 2V DATE: 04/27/2024 10:32 INDICATION: Cough. Abnormal lung sounds. TECHNIQUE: Frontal and lateral views of the chest were obtained. COMPARISON: Chest 2 views 08/21/2023 FINDINGS: There is no pneumonia, pleural effusion, or pneumothorax. The heart size is normal. IMPRESSION: 1. No acute cardiopulmonary disease. Reviewed, dictated and finalized at location A. RMATION SECURITY ANALYST Dictated By: Zhang Perkins MD 04/27/24 1032 Signed By: <Electronically signed by Zhang Perkins MD in OV> Critical Care Time Critical Care Time Critical Care Time: No Discharge Plan Discharge Clinical Impression: Vaginal yeast infection, Respiratory tract congestion with cough UTI (urinary tract infection) Qualifiers: Urinary tract infection type: site unspecified Hematuria presence: without hematuria Qualified Code(s): N39.0 - Urinary tract infection, site not specified Patient Disposition: Home, Self-Care Condition: Stable Instructions: Antibiotic Form, Urinary Tract Infection in Women (ED), Yeast Infection (ED), Cold Symptoms (ED) Additional Instructions: Increase fluids especially cranberry juice and water Avoid caffeine and carbonated beverages Antibiotic as directed Tylenol/ibuprofen for pain or fever Follow-up with her primary care provider if further problems or concerns Recheck if you have fever over 101, nausea and vomiting. Diflucan as prescribed may repeat 72 hours x1 if needed antibiotic as prescribed till completed albuterol inhaler every 4 hours as needed for shortness of breath If your symptoms persist, change or worsen significantly before you can contact your personal physician then please, without delay, go to the emergency department for further evaluation. Follow-up with PCP in 7-10 days or sooner if needed Follow up with PCP soon in regards to your blood pressure which is elevated above threshold for referral. Blood pressure above 120/80 may indicate pre- hypertension. 134/80 probiotic while you are on the antibiotic or eat activia yogurt Prescriptions: New amoxicillin-pot clavulanate 875-125 mg tablet 1 tablet PO Q12H Qty: 20 0RF Rx Instructions: take with food. take probiotic while on this medication and/ or eat Activa yogurt albuterol sulfate 90 mcg/actuation HFA aerosol inhaler 2 puff inhalation QID PRN (Reason: shortness of breath or wheezing) Qty: 6.7 0RF fluconazole 100 mg tablet 100 mg PO DAILY Qty: 2 0RF Rx Instructions: take one tablet at onset of symptoms and then may repeat in X1 in 72 hors No Action omega-3 fatty acids [Fish Oil Concentrate] 1,000 mg capsule 1,000 mg PO BID cholecalciferol (vitamin D3) 25 mcg (1,000 unit) capsule 2,000 unit PO DAILY cetirizine [Zyrtec] 10 mg tablet 5 mg PO DAILY PRN (Reason: Allergy Symptoms) (DME) blood-glucose meter [Blood Glucose Monitoring] Kit See Rx Instructions .ROUTE .MEDSUPPLY Qty: 1 0RF Rx Instructions: check sugars once a day albuterol sulfate [Ventolin HFA] 90 mcg/actuation HFA aerosol inhaler 1 puff INHALATION Q4H PRN (Reason: shortness of breath or wheezing) Qty: 6.7 0RF (DME) lancets [OneTouch Delica Plus Lancet] 33 gauge misc See Rx Instructions .ROUTE .COMPLEX Qty: 100 0RF Dose Instruction: USE 1 TO CHECK GLUCOSE ONCE DAILY Rx Instructions: USE 1 TO CHECK GLUCOSE ONCE DAILY metformin 1,000 mg tablet See Rx Instructions .ROUTE .COMPLEX Qty: 180 0RF Dose Instruction: Take 1 tablet by mouth twice daily Rx Instructions: Take 1 tablet by mouth twice daily pravastatin 80 mg tablet See Rx Instructions .ROUTE .COMPLEX Qty: 90 1RF Dose Instruction: Take 1 tablet by mouth once daily Rx Instructions: Take 1 tablet by mouth once daily ezetimibe [Zetia] 10 mg tablet 10 mg PO DAILY Qty: 90 1RF ibuprofen 800 mg tablet See Rx Instructions .ROUTE .COMPLEX Qty: 270 0RF Dose Instruction: TAKE 1 TABLET BY MOUTH THREE TIMES DAILY Rx Instructions: TAKE 1 TABLET BY MOUTH THREE TIMES DAILY hydrochlorothiazide 12.5 mg tablet See Rx Instructions .ROUTE .COMPLEX Qty: 90 0RF Dose Instruction: Take 1 tablet by mouth once daily Rx Instructions: Take 1 tablet by mouth once daily lisinopril 20 mg tablet 20 mg PO ONCE Qty: 90 1RF diltiazem HCl 240 mg capsule,extended release 24hr 240 mg PO DAILY Qty: 90 1RF levothyroxine 100 mcg tablet See Rx Instructions .ROUTE .COMPLEX Qty: 90 1RF Dose Instruction: Take 1 tablet by mouth once daily Rx Instructions: Take 1 tablet by mouth once daily benzonatate 200 mg capsule 200 mg PO TID PRN (Reason: cough) Qty: 40 0RF Follow-up/Referrals: Evangelist Crockett MD [Primary Care Provider] - Time of Disposition: 10:58 Quality Lexie Coma Scale Eyes: Open Verbal: Oriented and Alert Motor: Follows Commands [place] Coma Total Score: 15
[2024-04-27 10:40] LABS: EDUAAPPEAR Clear; EDUABILI Negative (Negative); EDUABLOOD Negative (Negative); EDUACOLOR1 Yellow; EDUAGLUCOSE Negative (Negative); EDUAKETONE Negative (Negative); EDUALEUKO 1+ (Negative); EDUANITRATE Negative (Negative); EDUAPROTEIN Negative (Negative); EDUASPGRAVITY 1.025; EDUAUROBILI 0.2
== END 2024-04-27 11:01 | disposition home or self-care (01) ==
PROVIDERS: Emergency Provider Registered Nurse; PCP Internal Medicine
DX: B37.31 Acute candidiasis of vulva and vagina (principal); R09.89 Other specified symptoms and signs involving the circulatory and respiratory systems; R05.9 Cough, unspecified; N39.0 Urinary tract infection, site not specified; I35.8 Other nonrheumatic aortic valve disorders; I10 Essential (primary) hypertension; E11.9 Type 2 diabetes mellitus without complications; E78.5 Hyperlipidemia, unspecified; E03.9 Hypothyroidism, unspecified; E55.9 Vitamin D deficiency, unspecified; Z86.16 Personal history of COVID-19; Z87.891 Personal history of nicotine dependence
CPT/HCPCS: 71046; 81003; 87086; 99213; G0463

== ENCOUNTER 2024-10-21 14:23 | Outpatient (CLI) | payer MEDICARE, OTHER, SELFPAY ==
--- NOTE | 2024-10-21 14:58 | ECHO_ITS ---
Patient Info Name: Nicolasa Marrufo Age: 79 years : 1945 Gender: Female Ht: 64 in Wt: 161 lbs BSA: 1.83 m2 HR: 87 bpm BP: 136 / 81 mmHg Heart Rhythm: Sinus Rhythm Technical Quality: Fair Exam Date: 10/21/2024 3:00 PM Exam Location: Echo Lab Patient Status: Outpatient Admit Date: 10/21/2024 Staff Ordering Physician: Evangelist Crockett MD [place]atch [place] Cleaner: Marian Philippe RDCS Attending Provider: Evangelist Crockett MD Referring Physician: Bon LAM; Exam Type: CA echo doppler color flow Study Info Indications I51.89 - Other ill-defined heart diseases Complete two-dimensional, color flow and Doppler transthoracic echocardiogram is performed. Summary 1. Complete two-dimensional, color flow and Doppler transthoracic echocardiogram is performed. 2. Left ventricular chamber dimension is normal. 3. Left ventricular systolic function is normal, estimated at 60-65%. 4. The left ventricular diastolic function is grade I diastolic dysfunction. 5. E/e' 8 is minimally elevated. 6. Global longitudinal strain is mildly abnormal at -16.3%. 7. There is mild aortic valve sclerosis. 8. There is trace tricuspid valve regurgitation. 9. No pulmonary hypertension, estimated pulmonary arterial systolic pressure is 20 mmHg. Left Ventricle E/e' 8 is minimally elevated. Global longitudinal strain is mildly abnormal at -16.3%. Left ventricular chamber dimension is normal. Left ventricular systolic function is normal, estimated at 60-65%. The left ventricular diastolic function is grade I diastolic dysfunction. Right Ventricle Right ventricular systolic function is normal and with normal TAPSE 1.9 cm. Right ventricular chamber dimension is normal. Left Atria Left atrial chamber dimension is normal. Right Atria Right atrial chamber dimension is normal. Aortic Valve The aortic valve is trileaflet. There is mild aortic valve sclerosis. There is no aortic valve stenosis. There is no aortic valve regurgitation. Pulmonic Valve There is no pulmonic regurgitation. Mitral Valve There is no mitral valve stenosis. There is no mitral valve regurgitation. Tricuspid Valve There is trace tricuspid valve regurgitation. No pulmonary hypertension, estimated pulmonary arterial systolic pressure is 20 mmHg. Pericardium/Pleural There is no pericardial effusion. Inferior Vena Cava Normal inferior vena cava with >50% collapse upon inspiration consistent with normal right atrial pressure, 5 mmHg. Aorta The aortic root size at the sinus of Valsalva is normal. Left Ventricular Outflow Tract Name Value Normal LVOT 2D LVOT Diameter 2.0 cm LVOT Doppler LVOT Peak Gradient 4 mmHg LVOT Mean Gradient 2 mmHg LVOT VTI 19 cm LVOT VTI/AV VTI Ratio 0.8 LVOT Stroke Volume 61 ml LVOT CO 4.3 l/min LVOT CI 2.4 l/min/m2 Pulmonic Valve Name Value Normal RVOT Doppler RVOT Peak Gradient 2 mmHg PV Doppler PV Peak Gradient 4 mmHg Mitral Valve Name Value Normal MV Doppler MV Decel [place] 395 cm/s2 MV PHT 52 ms MV Area (PHT) 4.2 cm2 4.0-5.0 MV Diastolic Function MV E Peak Velocity 71 cm/s MV A Peak Velocity 93 cm/s MV E/A 0.8 MV Decel Time 179 ms MV Annular TDI MV E/e' (Septal) 13.7 <=8.0 MV E/e' (Lateral) 6.7 <=8.0 MV E/e' (Average) 10.2 Tricuspid Valve Name Value Normal TV Regurgitation Doppler TR Peak Velocity 193 cm/s TR Peak Gradient 15 mmHg Estimated PAP/RSVP RA Pressure 5 mmHg <=5 PA Systolic Pressure 20 mmHg <36 RV Systolic Pressure 20 mmHg <36 Aorta Name Value Normal Ascending Aorta Ao Root Diameter (MM) 3.1 cm Ao Root Diam Index (MM) 1.7 cm/m2 Aortic Valve Name Value Normal AV Doppler AV Peak Velocity 128 cm/s AV Peak Gradient 7 mmHg AV Mean Gradient 4 mmHg AV VTI 24 cm AV Area (Cont Eq VTI) 2.5 cm2 >=3.0 AV Area (Cont Eq Chaz) 2.5 cm2 AV Regurgitation 2D LVOT Area 3.2 cm2 Ventricles Name Value Normal LV Dimensions 2D/MM IVS Diastolic Thickness (2D) 1.0 cm 0.6-1.0 LVID Diastole (2D) 3.8 cm 3.8-5.2 LVIW Diastolic Thickness (2D) 0.9 cm 0.6-0.9 LVID Systole (2D) 2.6 cm 2.2-3.5 LVOT Diameter 2.0 cm LV Mass (2D Cubed) 112.83 g 67.00-162.00 LV Mass Index (2D Cubed) 61 g/m2 43-95 Relative Wall Thickness (2D) 0.48 LV Fractional Shortening/Ejection Fraction 2D/MM LV Fractional Shortening (2D) 33 % 27-45 LV EF (2D Teicholz) 63 % 54-74 LV Diastolic Volume (4C MOD) 45 ml LV EF (4C MOD) 61 % LV Diastolic Volume (2C MOD) 44 ml LV EF (2C MOD) 70 % LV Diastolic Volume (BP MOD) 45 ml 46-106 LV Diastolic Volume Index (BP MOD) 25 ml/m2 29-61 LV Systolic Volume (BP MOD) 16 ml 14-42 LV Systolic Volume Index (BP MOD) 8 ml/m2 8-24 LV EF (BP MOD) 66 % 54-74 LV Diastolic Length (4C) 7.9 cm LV Systolic Length (4C) 6.5 cm LV Stroke Volume (4C MOD) 27 ml Atria Name Value Normal LA Dimensions LA Dimension (MM) 3.1 cm 2.7-3.8 LA Volume (4C A-L) 28 ml LA Volume (BP A-L) 31 ml RA Dimensions RA Area (4C) 12.8 cm2 <=18.0 EchoPAC Name Value Normal MARIA ELENA AA peak sys SL (AWMA) 16.0 % AAS peak sys SL (AWMA) 18.5 % AI peak sys SL (AWMA) 22.2 % AL peak sys SL (AWMA) 13.7 % AP peak sys SL (AWMA) 11.2 % peak sys SL (AWMA) 23.7 % AVC (AWMA) 387 ms BA peak sys SL (AWMA) 20.9 % BAS peak sys SL (AWMA) 12.6 % BI peak sys SL (AWMA) 16.7 % BL peak sys SL (AWMA) 13.9 % BP peak sys SL (AWMA) 16.0 % BS peak sys SL (AWMA) 18.2 % G peak SL(A2C) (AWMA) 19.1 % G peak SL(A4C) (AWMA) 15.9 % G peak SL(APLAX) (AWMA) 13.8 % G peak SL(Avg) (AWMA) 16.3 % MA peak sys SL (AWMA) 15.0 % MAS peak sys SL (AWMA) 17.2 % WV peak sys SL (AWMA) 19.9 % ML peak sys SL (AWMA) 10.8 % MP peak sys SL (AWMA) 10.4 % MS peak sys SL (AWMA) 21.8 % Report Signatures
--- OUTSIDE RECORDS SUMMARY | 2024-10-21 15:00 | XMS_ITS | CONTINUITY OF CARE DOCUMENT ---
Author Name ronald cardenas Address Unknown Organization [facility] Address [address] [place] [address] Phone [phone] Care Team Providers Care Locomotive Boilermaker Name Role Phone ronald cardenas Unavailable Unavailable INSURANCE PROVIDERS Payer name Policy type / Coverage type [place] red republican ID [facility] [id number] Other [id number] [facility] [id number]
== END 2024-10-21 14:24 | disposition home or self-care (01) ==
LOC: ANHCARD 14:25
PROVIDERS: PCP Internal Medicine; Visit Provider Internal Medicine
DX: R93.1 Abnormal findings on diagnostic imaging of heart and coronary circulation (principal); I51.89 Other ill-defined heart diseases
CPT/HCPCS: 93306

== ENCOUNTER 2025-03-14 11:00 | Outpatient (CLI) | payer MEDICARE, OTHER, SELFPAY ==
--- NOTE | ~2025-03-14 | MM_ITS ---
EXAMINATION: MM screening arsenio BI w ziyad HISTORY: Screening TECHNIQUE: Craniocaudal and mediolateral oblique 3-D tomosynthesis images were obtained and synthetic 2-D images were generated. CAD analysis was submitted and interpreted. COMPARISON: Comparison to multiple prior studies sequentially, with oldest reviewed study dated , 03/27/2019 BREAST PARENCHYMAL COMPOSITION: The breasts are almost entirely fatty. FINDINGS: There is no evidence of suspicious mass, calcification, or architectural distortion to suggest malignancy in either breast. IMPRESSION: 1. No mammographic evidence of malignancy. 2. Recommend routine screening mammography in one year. BI-RADS Category 1: Negative Reviewed, dictated and finalized at location B.
--- OUTSIDE RECORDS SUMMARY | 2025-03-14 11:05 | XMS_ITS | Clinical Summary ---
Author Organization [facility] [address] Address [address] [place] [address] Care Team Providers Care [employer] Name Role Phone Unavailable Primary Care Provider Unavailabl e Social History Tobacco Use Types Packs/Day Years Used Date Smoking Tobacco: Never Assessed Comments Unknown Sex and Gender Information Value Date Recorded Sex Assigned at Not on file Legal Sex Female 2:12 PM CDT Gender Identity Not on file Sexual Orientation Not on file Plan of Treatment Upcoming Encounters Date Type Department Care Team (Late st Contact Info) Description 07/02/2025 10:00 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
== END 2025-03-14 11:01 | disposition home or self-care (01) ==
LOC: ANHFOHIMG 11:02
PROVIDERS: PCP Internal Medicine; Visit Provider Obstetrics & Gynecology Gynecology
DX: Z12.31 Encounter for screening mammogram for malignant neoplasm of breast (principal)
CPT/HCPCS: 77063; 77067

== ENCOUNTER 2025-04-07 08:28 | Outpatient (CLI) | payer MEDICARE, OTHER, SELFPAY ==
--- NOTE | ~2025-04-07 | DEXA_ITS ---
Bone Density Report Name: KARIE CHRISTY Age: 79 Sex: Female Ethnicity: White Date of : 1945 Indication: hyperparathyroidism; height loss; Referring Provider: SABRINA, EDWAR Study: Bone densitometry was performed. Exam Date: April 07, 2025 Accession number: [id number] Bone Density: Region BMD T-score Z-score Classification AP Spine(L1-L4) 1.085 0.3 2.9 Normal Femoral Neck (Left) 0.571 -2.5 -0.3 Osteoporosis Total Hip (Left) 0.871 -0.6 1.3 Normal Femoral Neck (Right) 0.564 -2.6 -0.4 Osteoporosis Total Hip (Right) 0.812 -1.1 0.9 Osteopenia Total Hip Mean 0.841 -0.9 1.1 Normal World Health Organization criteria for BMD impression classify patients as: Normal (T-score at or above -1.0), Osteopenia (T-score between -1.0 and -2.5), or Osteoporosis (T-score at or below -2.5). 10-year Fracture Risk: FRAX not reported because: Some T-score for Spine Total or Hip Total or Femoral Neck at or below -2.5 Previous Exams: Region Exam Age BMD T-score BMD Change BMD Change Date g/cm2 vs Baseline vs Previous AP Spine (L1-L4) 04/07/2025 79 1.085 0.3 0.076 (7.6%)# 0.025 (2.4%)* 10/29/2021 76 1.060 0.1 0.051 (5.1%)# 0.024 (2.4%)* 02/26/2018 72 1.035 -0.1 0.027 (2.7%)# 0.014 (1.4%) 02/11/2016 70 1.021 -0.2 0.012 (1.2%)# 0.012 (1.2%)# 01/09/2014 68 1.008 -0.4 Total Hip(Left) 04/07/2025 79 0.871 -0.6 0.068 (8.5%)# -0.023 (-2.5%) 10/29/2021 76 0.893 -0.4 0.091 (11.3%)# -0.007 (-0.8%) 02/26/2018 72 0.901 -0.3 0.098 (12.2%)# 0.038 (4.4%)* 02/11/2016 70 0.863 -0.6 0.060 (7.5%)# 0.060 (7.5%)# 01/09/2014 68 0.803 -1.1 Total Hip(Right) 04/07/2025 79 0.812 -1.1 -0.060 (-6.9%) -0.026 (-3.1%) 10/29/2021 76 0.837 -0.9 -0.034 (-3.9%) -0.062 (-6.9%) 02/26/2018 72 0.899 -0.4 0.028 (3.2%)# 0.059 (7.1%)* 02/11/2016 70 0.840 -0.8 -0.032 (-3.7%) -0.032 (-3.7%) 01/09/2014 68 0.872 -0.6 *Denotes significance at 95% confidence level, LSC for AP Spine = 0.022 g/cm2, LSC for Total Hip = 0.027 g/cm2 # Denotes dissimilar scan types or analysis methods Clinical Information Provided by Patient: Has used the following medications: Vitamin D, Calcium Has the following medical conditions: Hyperparathyroidism Patient maximum height was 67 Menopause Age: 57 No regular weight bearing exercise Drinks caffeinated beverages Onset of menses at age 15 Number of children 1 Impression: The patient has osteoporosis, based on the Right Femoral Neck T-score. No significant bone loss was observed. Discussion: INCREASED RISK OF FRACTURE. BONE DENSITY IS UNDESIRABLY LOW AT ONE OR MORE SKELETAL SITES, CONSISTENT WITH POSTMENOPAUSAL OSTEOPOROSIS. This patient's lowest T-score meets the World Health Organization's (WHO) criteria for osteoporosis at one or more sites (T-score -2.5 or below). In untreated patients, the risk of osteoporotic fracture increases approximately two-fold for each 1.0 SD decrease in T-score. Low bone density is not the only risk factor for fracture; also consider factors such as patient's age, frailty or poor health, risk of falling, risk of injury, previous osteoporotic fracture, family history of osteoporosis, cigarette smoking, low body weight, etc. Not everyone with low bone mineral density has osteoporosis; osteomalacia and other metabolic bone disorders should also be considered. Patients who have osteoporosis should be evaluated for specific diseases and conditions (secondary causes) that may cause or contribute to bone loss. The [place] [employer] Endocrinologists (AACE) and National Osteoporosis Foundation (NOF) recommend pharmacologic intervention for all postmenopausal women whose T-score is in this range. The patient should follow a healthful lifestyle (good nutrition with adequate calcium and vitamin D, and appropriate weight-bearing exercise). Follow-Up: Consider a repeat BMD and Vertebral Fracture Assessment (VFA) exam in 2 years or sooner if medically necessary, to reassess this patient's status. Reported by: GAGE on 04/07/2025 9:16:00 AM. Reviewed, dictated and finalized at location A.
== END 2025-04-07 08:29 | disposition home or self-care (01) ==
PROVIDERS: PCP Internal Medicine
DX: Z78.0 Asymptomatic menopausal state (principal); M85.88 Other specified disorders of bone density and structure, other site; M81.0 Age-related osteoporosis without current pathological fracture; M85.851 Other specified disorders of bone density and structure, right thigh
CPT/HCPCS: 77080